=== PATIENT | male | born 1995 | race Hispanic/Latino ===

== ENCOUNTER 2025-07-05 22:58 | Emergency (ER) | payer OTHER ==
[2025-07-05 23:25] LABS: #Basophils 0.1 thou/uL (0.0-0.2); #Eosinophils 0.1 thou/uL (0.0-0.7); #Lymphocytes 2.7 thou/uL (1.20-3.40); #Monocytes 0.9 thou/uL (0.11-0.59); #Neutrophils 6.3 thou/uL (1.40-6.50); %Basophils 0.5 % (0.0-1.0); %Eosinophils 0.6 % (0.0-10.0); %Lymphocytes 27.2 % (21.0-51.0); %Monocytes 8.7 % (0.0-10.0); %Neutrophils 62.9 % (42.0-75.0); Hematocrit 48.7 % (42.0-52.0); Hemoglobin 15.9 g/dL (14.0-18.0); Mean Corpuscular Hemoglobin 27.6 pg (27.0-31.0); Mean Corpuscular Volume 84.7 fl (78.0-98.0); Platelet Count 357 10x3/uL (130-400); Red Blood Cell (RBC) Count 5.75 mill/uL (4.70-6.10); White Blood Cell (WBC) Count 10.0 10x3/uL (4.8-10.8)
[2025-07-05 23:38] LABS: ALT (SGPT) 27 U/L (Less than 45); AST (SGOT) 41 U/L (11-34); Albumin 4.2 g/dL (3.1-4.5); Alkaline Phosphatase 113 U/L (40-110); Anion Gap 17 mmol/L (10-20); BUN (Urea Nitrogen) 18 mg/dL (8.9-20.6); Bilirubin, Total 1.5 mg/dL (0.3-1.2); Calc. Creatinine Clearance 0 mL/min (70-130); Calcium 8.7 mg/dL (7.8-10.44); Carbon Dioxide 23 mmol/L (22-29); Chloride 100 mmol/L (98-107); Globulin 3.9 g/dL (2.4-3.5); Glucose 88 mg/dL (70-105); Potassium 3.6 mmol/L (3.5-5.1); Sodium 136 mmol/L (136-145)
[2025-07-05 23:40] LABS: Troponin I 0.039 ng/mL (< 0.028)
== END 2025-07-06 02:40 ==
LOC: NAV ERS 22:58 → EEVIPCON 22:58 → NAV ERS 07-06 02:40
DX: S43.401A Unspecified sprain of right shoulder joint, initial encounter (principal); S20.211A Contusion of right front wall of thorax, initial encounter; Y08.89XA Assault by other specified means, initial encounter
CPT/HCPCS: 80053; 84484; 85025; 93005; 99284; J7030